=== PATIENT | female | born 1990 | race Caucasian/White ===

== ENCOUNTER 2016-11-27 15:42 | Emergency (ER) | payer OTHER ==
[~2016-11-27] VITALS: Ht 160 cm; Wt 60.0 kg
[~2016-11-27 15:42] MED LIST: EPIP0.3I IM; FAMO1TAB37 PO; PRED20 PO; ULTR50TA5 PO
[2016-11-27 15:46] VITALS: BP 122/78; PULSE 82; RESP 14; TEMP 98.3; O2SAT 100
== END 2016-11-27 16:10 | disposition left against medical advice (07) ==
LOC: NED 15:42
DX: R11.2 Nausea with vomiting, unspecified (principal)
CPT/HCPCS: 99281

== ENCOUNTER 2017-01-05 18:16 | Inpatient (IN) | payer OTHER ==
[~2017-01-05] VITALS: Ht 165.1 cm; Wt 60.3 kg
[2017-01-05] VITALS (18 sets, daily range): BP systolic 95–176; BP diastolic 51–81; PULSE 81–114; RESP 14–28; TEMP 99.2; O2SAT 95–100
[2017-01-05] MEDS ORDERED: ePHEDrine/NS 25 MG/5 ML SYR ONE (18:26)
--- NOTE | 2017-01-05 18:27 | PD ---
HPI Chief Complaint: allergic reaction Time Seen by Provider: 18:27 Travel History International Travel<30 days: No Contact w/Intl Traveler<30days: No Traveled to known affect area: No History of Present Illness HPI 26-year-old female with history of multiple allergies that no significant medical history presents to emergency department for evaluation of an allergic reaction. Patient took Vitussin in for a cough that she has been having for the last 2 days. She shortly began having chest tightness shortness of breath with oral sensation of swelling and sensation of her throat closing up. She could not find her EpiPen. Patient is with garbled speech, she is panicking, she has stridor on auscultation, she is tachypneic. No other history is able to be obtained at this time. PFSH Past Medical History Hx Anticoagulant Therapy: No Asthma: No Blood Disorders: No Anxiety: Yes Depression: No Heart Rhythm Problems: No Cancer: No (pre-cancer on right breast) Cardiovascular Problems: No High Cholesterol: No Chemotherapy: No Chest Pain: Yes Congestive Heart Failure: No COPD: No Cerebrovascular Accident: No Diabetes: No Diminished Hearing: No Endocrine: No Gastrointestinal Disorders: Yes (gallbladder removal 01/2016) Genitourinary: Yes (ATONIC BLADDER, UTI) Hypertension: No Immune Disorder: No Implanted Vascular Access Dvce: Yes Musculoskeletal: Yes (NERVE DAMAGE LOWER SPINE) Neurologic: Yes Psychiatric: Yes (POSSIBLE PTSD.) Reproductive: No Respiratory: No Migraines: Yes Radiation Therapy: No Sleep Apnea: No Thyroid Disease: No : 1 Miscarriage: 1 Tubal Ligation: Yes (3) Past Surgical History Body Medical Devices: "SCREWS (TITANIUM) ON LOWER BACK." Cholecystectomy: Yes (January 2016) Genitourinary Surgery: Yes (SUPRAPUBIC CATH 2011, SINCE REMOVED) Neurologic Surgery: Yes (NERVE STIMULATOR (REMOVED NOW)) Other Surgery: Yes (CYST REMOVED RESULTED IN NERVE DAMAGE BLADDER, CYST REMOVED FROM BREAST) Social History Alcohol Use: Yes (OCC) Tobacco Use: No Substance Use: No Allergies-Medications (Allergen,Severity, Reaction): Coded Allergies: Ativan (Verified Allergy, Severe, CODE PER PT, 01/05/17) Chlorhexidine (Verified Allergy, Severe, Anaphylaxis, 01/05/17) Patient was given Chlorhexidine bath c/o itching then went into respiratory distress code called Cipro (Verified Allergy, Severe, Anaphylaxis, 01/05/17) Morphine (Verified Allergy, Severe, Anaphylaxis, 01/05/17) [place] (Verified Allergy, Severe, Anaphylaxis, 01/05/17) Reglan (Unverified Allergy, Severe, UNCONTROLLED SHAKING, 01/05/17) IV FORM Rocephin (Verified Allergy, Severe, Anaphylaxis, 01/05/17) Septra (Verified Allergy, Severe, Rash, 01/05/17) Toradol (Verified Allergy, Severe, 01/05/17) Doxycycline (Verified Allergy, Unknown, Nausea/Vomiting, 01/05/17) Uncoded Allergies: v-tussin (Allergy, Severe, Anaphylaxis, 01/05/17) Reported Meds & Prescriptions Reported Meds & Active Scripts Active Epipen 2-Abel Inj (Epinephrine) 0.3 Mg/0.3 Ml Pfpen 0.3 Mg IM ONCE PRN Review of Systems Except as stated in HPI: all other systems reviewed are Neg Physical Exam Narrative GENERAL: Female patient, brought straight back, in acute respiratory distress SKIN: Warm and dry. HEAD: Atraumatic. Normocephalic. EYES: Pupils equal and round. No scleral icterus. No injection or drainage. ENT: No nasal bleeding or discharge. Mucous membranes pink and moist. NECK: Trachea midline. No JVD. CARDIOVASCULAR: Tachycardic rate and rhythm. No murmur appreciated. RESPIRATORY: Tachypneic. Stridor on auscultation. Faint wheezes, diminished sounds Breath sounds equal bilaterally. GASTROINTESTINAL: Abdomen soft, non-tender, nondistended. Hepatic and splenic margins not palpable. MUSCULOSKELETAL: No obvious deformities. No clubbing. No cyanosis. No edema. NEUROLOGICAL: Awake and alert. No obvious cranial nerve deficits. Motor grossly within normal limits. Normal speech. Data Data Last Documented VS Vital Signs Date Time Temp Pulse Resp B/P Pulse Ox O2 Delivery O2 Flow Rate FiO2 01/05/17 18:30 100 Orders Ecg Monitoring (01/05/17 18:24) Iv Access Insert/Monitor (01/05/17 18:24) Oximetry (01/05/17 18:24) Diphenhydramine Inj (Benadryl Inj) (01/05/17 18:30) Famotidine Inj (Pepcid Inj) (01/05/17 18:30) Albuterol Neb (Albuterol Neb) (01/05/17 18:30) Sodium Chloride 0.9% Flush (Ns Flush) (01/05/17 18:30) Epinephrine (1:1000) Inj (Adrenalin (1:1 (01/05/17 18:30) Ephedrine/Ns 25 Mg/5 Ml Syr (Ephedrine/N (01/05/17 18:26) Etomidate Inj (Amidate Inj) (01/05/17 18:29) Succinylcholine Inj (Quelicin Inj) (01/05/17 18:29) Etomidate Inj (Amidate Inj) (01/05/17 18:32) Succinylcholine Inj (Quelicin Inj) (01/05/17 18:32) Propofol 1000 Mg/100 Ml Inj (Diprivan 10 (01/05/17 18:38) Methylprednisolone So Succ Inj (Solumedr (01/05/17 18:45) Chest, Single Ap (01/05/17 ) Complete Blood Count With Diff (01/05/17 18:44) Basic Metabolic Panel (Bmp) (01/05/17 18:44) Urinalysis - C+S If Indicated (01/05/17 18:44) Urinary Catheter Management TRAY.Q8H (01/05/17 18:44) Etomidate Inj (Amidate Inj) (01/05/17 18:45) Succinylcholine Inj (Quelicin Inj) (01/05/17 18:45) Propofol 200 Mg/20 Ml Inj (Diprivan 200 (01/05/17 18:45) Propofol 1000 Mg/100 Ml Inj (Diprivan 10 (01/05/17 18:45) ^ Infusion (01/05/17 18:43) RASS (01/05/17 18:43) Neurological Rass Scale TRAY.Q2H (01/05/17 18:43) Midazolam Inj (Versed Inj) (01/05/17 19:00) Neurological Rass Scale Q30MX2,Q2HX4,Q4H (01/05/17 18:48) Fentanyl Drip (Fentanyl Drip) (01/05/17 19:00) Midazolam Inj (Versed Inj) (01/05/17 18:49) Fentanyl Drip (Fentanyl Drip) (01/05/17 18:49) MDM Medical Decision Making Medical Screen Exam Complete: Yes Emergency Medical Condition: Yes Medical Record Reviewed: Yes Differential Diagnosis Anaphylaxis versus allergic reaction versus anxiety Narrative Course 26-year-old female presents to emergency department as a straight back for anaphylaxis. Patient appears in acute distress. Epinephrine, Solu-Medrol, as ordered and I immediately discussed the patient with my attending physician Dr. Mathis who went and assess the patient immediately. He assumed care at this time. Condition: Stable Yoana Kumar Jan 05, 2017 18:27
[2017-01-05] MEDS ORDERED: SUCCINYLCHOLINE CHLORIDE 200 MG/10 ML VIAL ONE ×2 (18:29→18:32)
[2017-01-05] MEDS ORDERED: ETOMIDATE 20 MG/10 ML VIAL ONE ×2 (18:29→18:32)
[2017-01-05] MEDS ORDERED: diphenhydrAMINE HCL 50 MG/ML VIAL IVP ONE (18:30)
[2017-01-05] MEDS ORDERED: FAMOTIDINE 20 MG/2 ML VIAL IV PUSH ONE (18:30)
[2017-01-05] MEDS ORDERED: SODIUM CHLORIDE 0.9% FLUSH 5 ML FLUSH IVF PRN ×2 (18:30→21:30)
[2017-01-05] MEDS ORDERED: EPINEPHrine HCL (1:1000) 1 MG/ML VIAL IM ONE (18:30)
[2017-01-05] MEDS ORDERED: PROPOFOL 1000 MG/100 ML INJ 100 ML ONE (18:38)
[2017-01-05] MEDS ORDERED: methylPREDNISolone SOD SUCC 125 MG/2 ML VIAL IV PUSH ONE (18:45)
[2017-01-05] MEDS ORDERED: PROPOFOL 200 MG/20 ML AMP IV ONE (18:45)
[2017-01-05] MEDS ORDERED: ETOMIDATE 20 MG/10 ML VIAL IV PUSH ONE (18:45)
[2017-01-05] MEDS ORDERED: SUCCINYLCHOLINE CHLORIDE 200 MG/10 ML VIAL IV PUSH ONE (18:45)
[2017-01-05] MEDS ORDERED: fentaNYL DRIP 250 ML ONE (18:49)
[2017-01-05] MEDS ORDERED: MIDAZOLAM HCL 5 MG/ML VIAL (1 ML) ONE ×2 (18:49→20:02)
[2017-01-05] MEDS ORDERED: MIDAZOLAM HCL 5 MG/5 ML VIAL IV PUSH ONE (19:00)
--- NOTE | 2017-01-05 19:05 | HHI.HP ---
[facility] Service Critical Care Medicine [facility] Ad[facility] Diagnosis Diagnosis: (1) Anaphylaxis Diagnosis: Principal (2) Respiratory failure Diagnosis: Principal (3) Stridor Diagnosis: Principal (4) Nausea Diagnosis: Principal (5) Seizure cerebral Diagnosis: Principal (6) Pulmonary hypertension Diagnosis: Principal Chief Complaint: Anaphylactic reaction Travel History International Travel<30 Days: No Contact w/Intl Traveler <30 Da: No Traveled to Known Affected Are: No History of Present Illness 26-year-old Ethiopian female. Date of admission 01/05/2017. Past medical history includes known anaphylaxis with multiple drug allergies, PTSD, chronic abdominal pain, neurogenic bladder, procedure 2014 currently off all medications and pulmonary hypertension. She presents to [facility] via [facility] after consuming Hycotuss/V Tesson and experiencing her throat closing off. She was without her EpiPen symmetry and episode in 2015 and her symptoms got progressively worse. She states she is short of breath., Muffled voice. Upon arrival to ED, patient had bilateral breath sounds, tachycardic with no rash. Initially received Patient did have bilateral lung sounds on examination , was tachycardic, there is no obvious rash except for mild erythema over the chest. EpiPen 0.3 mg IM was administered. The patient was also administered 100.5 mg IV Solu-Medrol, 50 mg IV Benadryl and 20 mg Pepcid intravenously. However, the patient became in more distress, head difficulty maintaining airway , therefore, the patient was intubated using rapid sequence intubation. According to ED physician report, the hypopharynx to the level of the cords was edematous and erythematous. The patient has significant swelling just anterior and circumferential around the cords as well as in the posterior oropharynx. Initially, a 7.5 ET tube was attempted however did not pass. A 6.5 ET tube is currently in place. Patient had bilateral breath sounds. The patient was placed on a propofol drip and administered Versed and fentanyl. Review of Systems ROS Limitations: Intubated Past Family Social History Allergies: Coded Allergies: Ativan (Verified Allergy, Severe, CODE PER PT, 01/05/17) Chlorhexidine (Verified Allergy, Severe, Anaphylaxis, 01/05/17) Patient was given Chlorhexidine bath c/o itching then went into respiratory distress code called Cipro (Verified Allergy, Severe, Anaphylaxis, 01/05/17) Morphine (Verified Allergy, Severe, Anaphylaxis, 01/05/17) [place] (Verified Allergy, Severe, Anaphylaxis, 01/05/17) Reglan (Unverified Allergy, Severe, UNCONTROLLED SHAKING, 01/05/17) IV FORM Rocephin (Verified Allergy, Severe, Anaphylaxis, 01/05/17) Septra (Verified Allergy, Severe, Rash, 01/05/17) Toradol (Verified Allergy, Severe, 01/05/17) Doxycycline (Verified Allergy, Unknown, Nausea/Vomiting, 01/05/17) Uncoded Allergies: v-tussin (Allergy, Severe, Anaphylaxis, 01/05/17) Past Medical History PTSD Anaphylaxis Neurogenic bladder Prior history of seizures currently off all medication Hypertension Past Surgical History History spinal stimulator since removed History of suprapubic catheter since removed Right breast lumpectomy History spinal hardware status post stenting and titanium screws Reported Medications EpiPen when necessary Active Ordered Medications In EMR Family History Father is . Mother noncontributory. Social History No tobacco alcohol or IV drug use Physical Exam Vital Signs Vital Signs Date Time Temp Pulse Resp B/P Pulse Ox O2 Delivery O2 Flow Rate FiO2 01/05/17 18:30 100 Physical Exam GENERAL: 76-year-old female, currently orotracheally intubated with 6.5 ET tube SKIN: Warm and dry. No obvious rash HEAD: Atraumatic. Normocephalic. EYES: Pupils equal and round about 1 mm bilaterally and reactive. No scleral icterus. No injection or drainage. ENT: No nasal bleeding or discharge. Mucous membranes pink and moist. NECK: Trachea midline. No JVD. CARDIOVASCULAR: The cardiac, RRR. S1, S2 without murmur RESPIRATORY: No accessory muscle use. Clear to auscultation. Breath sounds equal bilaterally. GASTROINTESTINAL: Abdomen soft, non-tender, nondistended. Hepatic and splenic margins not palpable. MUSCULOSKELETAL: Extremities without difficulty and peripheral edema. No obvious deformities. NEUROLOGICAL: Arousable on the ventilator. Follows commands. Moves all extremities spontaneously. She appeared agitated. Laboratory Laboratory Tests Test 01/05/17 01/05/17 18:59 19:29 White Blood Count 10.4 TH/MM3 Red Blood Count 4.26 MIL/MM3 Hemoglobin 11.6 GM/DL Hematocrit 34.5 % Mean Corpuscular Volume 80.8 FL Mean Corpuscular Hemoglobin 27.2 PG Mean Corpuscular Hemoglobin 33.6 % Concent Red Cell Distribution Width 15.1 % Platelet Count 249 TH/MM3 Mean Platelet Volume 9.4 FL Neutrophils (%) (Auto) 41.4 % Lymphocytes (%) (Auto) 46.3 % Monocytes (%) (Auto) 8.3 % Eosinophils (%) (Auto) 3.2 % Basophils (%) (Auto) 0.8 % Neutrophils # (Auto) 4.3 TH/MM3 Lymphocytes # (Auto) 4.8 TH/MM3 Monocytes # (Auto) 0.9 TH/MM3 Eosinophils # (Auto) 0.3 TH/MM3 Basophils # (Auto) 0.1 TH/MM3 CBC Comment DIFF FINAL Differential Comment Urine Color YELLOW Urine Turbidity HAZY Urine pH 7.0 Urine Specific [place] 1.024 Urine Protein TRACE mg/dL Urine Glucose (UA) NEG mg/dL Urine Ketones NEG mg/dL Urine Occult Blood NEG Urine Nitrite NEG Urine Bilirubin NEG Urine Urobilinogen 2.0 MG/DL Urine Leukocyte Esterase NEG Urine RBC 2 /hpf Urine WBC 1 /hpf Urine Squamous Epithelial 1 /hpf Cells Urine Amorphous Sediment RARE Urine Hyaline Casts 1 /lpf Microscopic Urinalysis Comment CATH-CULT NOT IND Sodium Level 141 MEQ/L Potassium Level 2.8 MEQ/L Chloride Level 107 MEQ/L Carbon Dioxide Level 18.4 MEQ/L Anion Gap 16 MEQ/L Blood Urea Nitrogen 16 MG/DL Creatinine 0.90 MG/DL Estimat Glomerular Filtration 75 ML/MIN Rate Random Glucose 142 MG/DL Calcium Level 7.9 MG/DL Blood Gas Puncture Site RT RADIAL Blood Gas Patient Temperature 98.6 Blood Gas HCO3 18 mmol/L Blood Gas Base Excess -6.4 mmol/L Blood Gas Oxygen Saturation 97 % Arterial Blood pH 7.35 Arterial Blood Partial 34 mmHg Pressure CO2 Arterial Blood Partial 133 mmHG Pressure O2 Arterial Blood Oxygen Content 15.4 Vol % Arterial Blood 0.8 % Carboxyhemoglobin Arterial Blood Methemoglobin 0.8 % Blood Gas Hemoglobin 11.1 G/DL Oxygen Delivery Device VENTILATOR Blood Gas Ventilator Setting 450/16/+5 Blood Gas Inspired Oxygen 50 % Imaging Last Impressions Chest X-Ray 01/05/17 0000 Signed Impressions: Service Date/Time: Thursday, January 05, 2017 18:57 - CONCLUSION: 1. Interval intubation. 2. Mild infiltrate now noted in the inferior right upper lobe of concern for pneumonia. Darren Yee MD Assessment and Plan Assessment and Plan Neuro/Psych: Posttraumatic stress disorder Anxiety disorder History seizures Currently in propofol/fentanyl and Versed drips for sedation/analgesia while intubated Goal of RA SS of -3 No daily sedation vacation until anaphylaxis resolved. Acetaminophen for fever Currently not on any antiepileptic medication. Off Dilantin greater than 2 years CV: Sinus tachycardia History of pulmonary hypertension? Patient is currently hemodynamically stable not requiring antihypertensives and/ or vasopressors On normal saline at 84 cc an hour RespENT: Acute respiratory failure secondary to anaphylaxis/stridor ACV ventilation 16/450/5/50 Ventilator bundle Bronchodilator therapy every 6 hours and as needed No spontaneous breathing trials until evaluated by ENT Follow-up chest x-ray in a.m. Status post 125 mg Solu-Medrol , 20 mg Pepcid IV and and Benadryl 50 mg 1. ENT consultation for evaluation GI: Chronic abdominal pain Keep patient nothing by mouth Pepcid twice a day for GI prophylaxis Colace/as needed Senokot for bowel regimen : History of neurogenic bladder Ackerman will be Placed For accurate I's and O's in critically ill patient Endo: Hyperglycemia of critical illness Sliding-scale insulin with Accu-Cheks to maintain euglycemia/low regimenevery 6 hours. Renal: Accurate I's and O's. Monitor urine output. Heme: Monitor CBC daily ID: Monitor for infection. MSK: History of spinal surgery/neurostimulator since removed Physical therapy evaluate and treat FEN: Hypokalemia Given 60 mEq IV KCl. Recheck Check magnesium Access - Utilize peripheral IV. Central line if indicated Prophylaxis - GI - Pepcid - DVT - SCD/follow-up on test prior to anticoagulation decision Critical Care: The total critical care time was 75 minutes. Time to perform other separately billable procedures was not included in the critical care time. Code Status Full code Discussed Condition With ED physician Dr. Mathis. is currently to be contacted by phone. Care plan discussed all questions answered. Problem Qualifiers (1) Anaphylaxis: Qualified Code: T78.2XXA - Anaphylaxis, initial encounter (2) Respiratory failure: Qualified Code: J96.01 - Acute respiratory failure with hypoxia and hypercapnia Rip Braga MD Jan 05, 2017 19:04
[2017-01-05 19:14] LABS: AUTOMATED NEUTROPHIL # 4.3 TH/MM3 (1.8-7.7); BASOPHIL # 0.1 TH/MM3 (0-0.2); BASOPHIL % 0.8 % (0.0-2.0); EOSINOPHIL # 0.3 TH/MM3 (0-0.4); EOSINOPHIL % 3.2 % (0.0-4.0); HEMATOCRIT 34.5 % (35.0-46.0); HEMO FLAGS DIFF FINAL; LYMPH % 46.3 % (9.0-44.0); LYMPHOCYTE # 4.8 TH/MM3 (1.0-4.8); MEAN CELL VOLUME 80.8 FL (80.0-100.0); MEAN CORPUSCULAR HEMOGLOBIN 27.2 PG (27.0-34.0); MEAN CORPUSCULAR HGB CONC 33.6 % (32.0-36.0); MONO % 8.3 % (0.0-8.0); NEUT % 41.4 % (16.0-70.0); PLATELET COUNT 249 TH/MM3 (150-450); RED BLOOD COUNT 4.26 MIL/MM3 (4.00-5.30); RED CELL DISTRIBUTION WIDTH 15.1 % (11.6-17.2); WHITE BLOOD COUNT 10.4 TH/MM3 (4.0-11.0)
--- NOTE | 2017-01-05 19:14 | PD ---
Physical Exam Date Seen by Provider: Jan 05, 2017 Time Seen by Provider: 19:06 Narrative The patient is a 26-year-old female who presents emergency department for shortness of breath and allergic reaction. The patient was initially evaluated by the mid-level provider. Patient has a history of significant anaphylaxis, however, was unable to find her EpiPen earlier today when she developed an allergic reaction after ingesting cough medicine. Data Data Last Documented VS Vital Signs Date Time Temp Pulse Resp B/P Pulse Ox O2 Delivery O2 Flow Rate FiO2 01/05/17 18:30 100 Orders Ecg Monitoring (01/05/17 18:24) Iv Access Insert/Monitor (01/05/17 18:24) Oximetry (01/05/17 18:24) Diphenhydramine Inj (Benadryl Inj) (01/05/17 18:30) Famotidine Inj (Pepcid Inj) (01/05/17 18:30) Albuterol Neb (Albuterol Neb) (01/05/17 18:30) Sodium Chloride 0.9% Flush (Ns Flush) (01/05/17 18:30) Epinephrine (1:1000) Inj (Adrenalin (1:1 (01/05/17 18:30) Ephedrine/Ns 25 Mg/5 Ml Syr (Ephedrine/N (01/05/17 18:26) Etomidate Inj (Amidate Inj) (01/05/17 18:29) Succinylcholine Inj (Quelicin Inj) (01/05/17 18:29) Etomidate Inj (Amidate Inj) (01/05/17 18:32) Succinylcholine Inj (Quelicin Inj) (01/05/17 18:32) Propofol 1000 Mg/100 Ml Inj (Diprivan 10 (01/05/17 18:38) Methylprednisolone So Succ Inj (Solumedr (01/05/17 18:45) Chest, Single Ap (01/05/17 ) Complete Blood Count With Diff (01/05/17 18:44) Basic Metabolic Panel (Bmp) (01/05/17 18:44) Urinalysis - C+S If Indicated (01/05/17 18:44) Urinary Catheter Management TRAY.Q8H (01/05/17 18:44) Etomidate Inj (Amidate Inj) (01/05/17 18:45) Succinylcholine Inj (Quelicin Inj) (01/05/17 18:45) Propofol 200 Mg/20 Ml Inj (Diprivan 200 (01/05/17 18:45) Propofol 1000 Mg/100 Ml Inj (Diprivan 10 (01/05/17 18:45) ^ Infusion (01/05/17 18:43) RASS (01/05/17 18:43) Neurological Rass Scale TRAY.Q2H (01/05/17 18:43) Midazolam Inj (Versed Inj) (01/05/17 19:00) Neurological Rass Scale Q30MX2,Q2HX4,Q4H (01/05/17 18:48) Fentanyl Drip (Fentanyl Drip) (01/05/17 19:00) Midazolam Inj (Versed Inj) (01/05/17 18:49) Fentanyl Drip (Fentanyl Drip) (01/05/17 18:49) Admit Order (Ed Use Only) (01/05/17 19:04) [facility] Medical Record Reviewed: Yes Supervised Visit with HECTOR: Yes Interpretation(s) Checks x-ray reveals atelectasis. Endotracheal tube in place. Differential Diagnosis Differential diagnosis includes anaphylaxis, airway obstruction, stridor, allergic reaction, medication side effect, angioedema. Narrative Course I, Dr. Mathis, have reviewed the advance practice practitioner's documentation and am in agreement, met with the patient face to face, made the diagnosis, and the medical decision making was done by me. *My assessment and Findings: The patient is a 26-year-old female was initially evaluate by the mid-level provider. Please refer to the initial history, physical, Already evaluation, and treatment modality plan. The patient presented with shortness of breath after ingesting Hycotuss cough medication. The patient was unable to find her EpiPen at home and developed stridor shortness of breath with muffled voice. Upon arrival the patient is tachycardic, anxious, has significant stridor with difficulty speaking. Patient did have bilateral lung sounds on examination, was tachycardic, there is no obvious rash except for mild erythema over the chest. The patient was in distress, EpiPen 0.3 mg IM was administered. The patient was also administered site Medrol, Benadryl, Pepcid intravenously. However, the patient became in more distress, head difficulty maintaining airway, therefore, the patient was intubated using rapid sequence intubation. The patient's hypopharynx to the level of the cords was edematous and erythematous. The patient has significant swelling just anterior and circumferential around the cords as well as in the posterior oropharynx. As the patient had stridor with possible impending airway, I attempted a place a 7.5, however, the 7.5 would not pass through the edematous area, therefore, I placed a 6.0 through the edematous area. Patient had bilateral breath sounds. The patient was placed on a propofol drip and administered Versed and fentanyl. The patient had a postintubation chest x-ray obtained. The patient will be admitted to the intensive care unit. Critical Care Narrative Aggregate critical care time was 35 minutes. Time to perform other separately billable procedures was not included in the critical care time. My time did not include minutes spent treating any other patients simultaneously or on activities that did not directly contribute to the patient's treatment. The services I provided to this patient were to treat and/or prevent clinically significant deterioration that could result in: Anoxia, hypoxia, airway obstruction, arrhythmia, . I provided critical care services requiring my management, as noted below: Chart data review, documentation time, medication orders and management, vital sign assessments/reviewing monitor data, ordering and reviewing lab tests, ordering and interpreting/reviewing x-rays and diagnostic studies, care of the patient and discussion of the patient with the admitting physicians. Procedures Procedure Narrative INTUBATION: The patient was put in optimal position for the procedure. Rapid sequence intubation was initiated by me using 20 milligrams of etomidate IV and 100 milligrams of succinylcholine IV. The patient was intubated with a 6-0 cuffed endotracheal tube secondary to significant edema with a glide scope. Tube placement was confirmed by visualization of the tube and balloon passing through the cords, capnometry and subsequent chest x-ray. Breath sounds were equal and well aerated bilaterally postintubation. No breath sounds over stomach. Patient tolerated procedure well. Physician Communication Physician Communication I discussed the patient with Dr. Braga who agrees with admission. Diagnosis Primary Impression: Anaphylaxis Qualified Code: T78.2XXA - Anaphylaxis, initial encounter Additional Impression: Stridor Admitting Information Admitting Physician Requests: Admit Condition: Serious Mathis,[place] Z. MD Jan 05, 2017 19:14
[2017-01-05] MEDS: RESP: ALBUTEROL 2.5 MG/3 ML NEB (SCH) INH (19:16)
[2017-01-05] MEDS: fentaNYL DRIP 250 ML IV SCH (19:19)
[2017-01-05] MEDS: PROPOFOL 1000 MG/100 ML INJ 100 ML IV SCH ×2 (19:19→23:14)
[2017-01-05 19:26] LABS: BLOOD, URINE NEG (NEG); GLUCOSE,URINE NEG (NEG); HYALINE CAST, URINE 1 /lpf (RARE); KETONE, URINE NEG (NEG); NITRITE,URINE NEG (NEG); SQUAMOUS EPITHELIAL CELL URINE 1 /hpf (0-5); URINE COLOR YELLOW (YELLW/STRAW)
[2017-01-05 19:31] LABS: COMMENT (UR) CATH-CULT NOT IND; CULTURE IF INDICATED CATH CULTURE NOT IND
--- NOTE | 2017-01-05 19:32 | RADRPT ---
EXAM DATE/TIME: 01/05/2017 18:57 [facility] COMPARISON: CHEST SINGLE AP, October 02, 2016, 19:49. INDICATIONS : Intubation MEDICAL HISTORY : Unobtainable SURGICAL HISTORY : Unobtainable ENCOUNTER: Initial ACUITY: 1 day PAIN SCORE: Non-responsive. LOCATION: Bilateral chest FINDINGS: A single AP supine view of the chest was obtained and demonstrates interval intubation with the endot galen tube tip at the level of the thoracic inlet approximately 3 cm above the jg. There is new infiltrate along the inferior portion of the right upper lobe. The heart size is within normal limit s. The bony thorax is intact. The patient is status post cholecystectomy. There is no effusion. CONCLUSION: 1. Interval intubation. 2. Mild infiltrate now noted in the inferior right upper lobe of concern for pneumonia. Darren Yee MD on January 05, 2017 at 19:29 Board Certified Radiologist. This report was verified electronically.
[2017-01-05 19:37] LABS: ANION GAP 16 MEQ/L (5-15); BICARBONATE 18.4 MEQ/L (21.0-32.0); BLOOD UREA NITROGEN 16 MG/DL (7-18); CHLORIDE 107 MEQ/L (98-107); GLOMERULAR FILTRATION RATE 75 ML/MIN (>89); SODIUM (NA) 141 MEQ/L (136-145)
[2017-01-05 19:39] LABS: BLOOD GAS BASE EXCESS -6.4 mmol/L (-2-2); BLOOD GAS CARBOXYHEMOGLOBIN 0.8 % (0-4); BLOOD GAS HCO3 18 mmol/L (22-26); BLOOD GAS METHEMOGLOBIN 0.8 % (0-2); BLOOD GAS O2 HGB SATURATION 97 % (90-100); BLOOD GAS OXYGEN CONTENT 15.4 Vol % (12.0-20.0); BLOOD GAS PCO2 34 mmHg (38-42); BLOOD GAS PO2 133 mmHG (61-120); BLOOD GAS TOTAL HGB 11.1 G/DL (12.0-16.0); TEMP CORR TO 98.6
[2017-01-05 19:40] LABS: CRITICAL VALUE NO; DRAW SITE RT RADIAL; FIO2 50 %; NUMBER OF ARTERIAL PUNCTURES 1; OXYGEN DEVICE VENTILATOR; STAT YES; ULNAR PULSE PRESENT; VENT SETTINGS 450/16/+5
[2017-01-05 19:40] LABS: POTASSIUM 2.8 MEQ/L (3.5-5.1)
[2017-01-05] MEDS ORDERED: GLUCAGON 1 MG/ML VIAL OTHER PRN (19:45)
[2017-01-05] MEDS ORDERED: fentaNYL DRIP 250 ML IV SCH (19:45)
[2017-01-05] MEDS ORDERED: SODIUM PHOSPHATE INJ 30 MMOL in SODIUM CHLOR 0.9% 250 ML INJ 240 ML IV PRN (19:45)
[2017-01-05] MEDS ORDERED: SODIUM CHLORIDE 0.9% FLUSH 5 ML FLUSH IV FLUSH PRN (19:45)
[2017-01-05] MEDS ORDERED: POTASSIUM PHOSPHATE MONOBASIC 500 MG TAB PO/TUBE PRN (19:45)
[2017-01-05] MEDS ORDERED: POTASSIUM PHOSPHATE INJ 30 MMOL in SODIUM CHLOR 0.9% 250 ML INJ 250 ML IV PRN (19:45)
[2017-01-05] MEDS ORDERED: RESP: ALBUTEROL 2.5 MG/3 ML NEB (PRN) INH (19:45)
[2017-01-05] MEDS ORDERED: MAGNESIUM SULFATE INJ 4 GM in SODIUM CHLORIDE 0.9% INJ 92 ML IV PRN (19:45)
[2017-01-05] MEDS ORDERED: SENNOSIDES 8.6 MG TAB PO PRN (19:45)
[2017-01-05] MEDS ORDERED: MAGNESIUM OXIDE 400 MG TAB PO PRN (19:45)
[2017-01-05] MEDS ORDERED: MISCELLANEOUS NURSING INFORMATION XX SCH (19:45)
[2017-01-05] MEDS ORDERED: POTASSIUM PHOSPHATE MONOBASIC 500 MG TAB PO PRN (19:45)
[2017-01-05] MEDS ORDERED: MAGNESIUM SULFATE INJ 2 GM in SODIUM CHLORIDE 0.9% INJ 96 ML IV PRN (19:45)
[2017-01-05] MEDS ORDERED: DEXTROSE 50% IN WATER 50 ML VIAL(D50) IV PUSH PRN (19:45)
[2017-01-05] MEDS ORDERED: POTASSIUM CHLOR 40 MEQ PREMIX 100 ML IV PRN ×2 (19:45)
[2017-01-05] MEDS ORDERED: POTASSIUM CHLOR 20 MEQ PREMIX 100 ML IV PRN ×2 (19:45)
[2017-01-05] MEDS ORDERED: ONDANSETRON HCL 4 MG/2 ML VIAL IV PRN (19:45)
[2017-01-05] MEDS ORDERED: MIDAZOLAM HCL 2 MG/2 ML VIAL IV PUSH PRN (20:00)
[2017-01-05] MEDS ORDERED: PROPOFOL 1000 MG/100 ML INJ 100 ML IV SCH (20:00)
[2017-01-05] MEDS: RESP: ALBUTEROL 2.5 MG/IPRATROPIUM 0.5 MG NEB (SCH) INH ×2 (20:00→23:25)
[2017-01-05] MEDS ORDERED: MIDAZOLAM 100 MG/ML INJ 100 ML IV SCH (20:00)
[2017-01-05] MEDS ORDERED: POTASSIUM CHLOR 40 MEQ PREMIX 100 ML IV SCH (20:00)
[2017-01-05] MEDS ORDERED: CHLORHEXIDINE 0.12% (ORAL KIT) 15 ML CUP MT SCH (20:00)
[2017-01-05 20:11] LABS: BETA HCG QUANT LESS THAN 1 MIU/ML (0-5)
[2017-01-05 20:20] LABS: MAGNESIUM 2.2 MG/DL (1.5-2.5)
[2017-01-05] MEDS: diphenhydrAMINE HCL 50 MG/ML VIAL IV PUSH SCH (20:25)
[2017-01-05] MEDS: FAMOTIDINE 20 MG/2 ML VIAL IV PUSH SCH (20:25)
[2017-01-05] MEDS: DOCUSATE SODIUM 100 MG CAP PO SCH (21:00)
--- NOTE | 2017-01-05 21:18 | PD.PROCEDR ---
Central Line Procedure REASON FOR PROCEDURE Central venous access PROCEDURE PERFORMED Central line placement: Right IJ CVL CONSENT Informed consent for procedure was obtained from . The risks and benefits of the procedure were discussed to include but limited to bleeding, clot formation, infection, and even . ANESTHESIA Local injection of 1% Lidocaine DESCRIPTION OF THE PROCEDURE The patient was placed in supine, mild Trendelenburg position. The area was exposed and cleansed with ChloraPrep, times two. Large sterile drape was used to cover the patient, with the site exposed, under sterile conditions including cap, face mask, sterile gown, and sterile gloves. On single attempt, the introducer needle was inserted with negative pressure in syringe and venous flash was obtained. The guide wire was then advanced without any restriction and the needle was removed. The dilator was used without any complications. Using Seldinger technique the triple lumen catheter was advanced over the guide wire to a depth of 20 centimeters. The guide wire was removed. All ports were aspirated with dark venous blood return and flushed easily with sterile saline. All ports were capped. Antibiotic disc was placed around central line at puncture site. The central line was secured to the skin with two interrupted 2.0 silk sutures. The area was bandaged with sterile see-through central line bandage. RADIOLOGICAL DATA Ultrasound guidance was used to locate right internal jugular vein. Doppler/ color flow was used to confirm venous flow. COMPLICATIONS: No apparent complications ESTIMATED BLOOD LOSS: Less than 1 cc. Rip Braga MD Jan 05, 2017 21:18
--- NOTE | 2017-01-05 22:11 | RADRPT ---
EXAM DATE/TIME: 01/05/2017 21:48 [facility] COMPARISON: CHEST SINGLE AP, January 05, 2017, 18:57. INDICATIONS : Central Line Placement. MEDICAL HISTORY : Cholelithiasis. Migraines. Atonic bladder. UTI. Nerve damage, lower spine. Blood transfusion. SURGICAL HISTORY : Cholecystectomy. Nerve stimulator, placement and removal. Suprepubic catheter, placement and removal. Cyst removed from breast. ENCOUNTER: Initial ACUITY: 1 day PAIN SCORE: Non-responsive. LOCATION: Bilateral chest FINDINGS: A single view of the chest demonstrates minimal right upper lobe consolidation. Right jugular central line tip in the cavoatrial junction. No pneumothorax. Endotracheal tube unchanged. The cardiomedias tinal contours are unremarkable. Osseous structures are intact. CONCLUSION: 1. Minimal right upper lobe consolidation slightly more prominent. 2. Adequate placement of right jugular central line. Bryaan Her MD on January 05, 2017 at 22:09 Board Certified Radiologist. This report was verified electronically.
[2017-01-05] MEDS: SODIUM CHLOR 0.9% 1000 ML INJ 1,000 ML IV SCH (22:58)
[2017-01-05] MEDS: HEPARIN SODIUM - SQ 10,000 UNITS/ML VIAL SQ SCH (22:59)
[2017-01-05] MEDS: methylPREDNISolone SOD SUCC 40 MG/1 ML VIAL IV PUSH SCH (22:59)
[2017-01-05] MEDS: POTASSIUM CHLOR 10 MEQ PREMIX 100 ML IV SCH (23:00)
[2017-01-05] MEDS ORDERED: EPINEPHrine (1:1000) INJ 2 MG in DEXTROSE 5% IN WATER INJ 248 ML IV SCH ×2 (23:00)
[2017-01-05] MEDS: SODIUM CHLORIDE 0.9% FLUSH 5 ML FLUSH IV FLUSH SCH (23:00)
[2017-01-05] MEDS: INSULIN NovoLIN REGULAR SUPPLEMENTAL SCALE SQ SCH (23:59)
[2017-01-06] VITALS (18 sets, daily range): BP systolic 101–111; BP diastolic 50–55; PULSE 79–127; RESP 14; TEMP 98.6–101.8; O2SAT 98–100
[2017-01-06] MEDS: POTASSIUM CHLOR 10 MEQ PREMIX 100 ML IV SCH ×4 (00:15→04:17)
[2017-01-06] MEDS: diphenhydrAMINE HCL 50 MG/ML VIAL IV PUSH SCH ×4 (01:23→20:48)
[2017-01-06] MEDS: RESP: ALBUTEROL 2.5 MG/IPRATROPIUM 0.5 MG NEB (SCH) INH ×6 (03:17→23:37)
[2017-01-06] MEDS: MIDAZOLAM 100 MG/ML INJ 100 ML IV SCH ×2 (04:16→12:53)
[2017-01-06] MEDS: HEPARIN SODIUM - SQ 10,000 UNITS/ML VIAL SQ SCH ×3 (04:58→20:48)
[2017-01-06] MEDS: PROPOFOL 1000 MG/100 ML INJ 100 ML IV SCH ×3 (04:58→16:16)
[2017-01-06] MEDS: methylPREDNISolone SOD SUCC 40 MG/1 ML VIAL IV PUSH SCH ×3 (04:58→18:23)
[2017-01-06 05:08] LABS: AUTOMATED NEUTROPHIL # 11.9 TH/MM3 (1.8-7.7); HEMO FLAGS DIFF FINAL; LYMPH % 3.3 % (9.0-44.0); LYMPHOCYTE # 0.4 TH/MM3 (1.0-4.8); MEAN CELL VOLUME 82.9 FL (80.0-100.0); MEAN CORPUSCULAR HEMOGLOBIN 26.2 PG (27.0-34.0); MEAN CORPUSCULAR HGB CONC 31.6 % (32.0-36.0); MONO % 0.8 % (0.0-8.0); NEUT % 95.9 % (16.0-70.0); PLATELET COUNT 178 TH/MM3 (150-450); RED BLOOD COUNT 3.98 MIL/MM3 (4.00-5.30); RED CELL DISTRIBUTION WIDTH 14.7 % (11.6-17.2); WHITE BLOOD COUNT 12.4 TH/MM3 (4.0-11.0)
--- NOTE | 2017-01-06 05:25 | RADRPT ---
EXAM DATE/TIME: 01/06/2017 03:23 [facility] COMPARISON: CHEST SINGLE AP, January 05, 2017, 21:48. INDICATIONS : Shortness of breath, possible pulmonary disease. MEDICAL HISTORY : Cholelithiasis. UTI SURGICAL HISTORY : Cholecystectomy. ENCOUNTER: Subsequent ACUITY: 2 days PAIN SCORE: Non-responsive. LOCATION: Bilateral chest FINDINGS: A single view of the chest demonstrates endotracheal tube in satisfactory position. Right central williams e in superior vena cava. Right perihilar airspace disease persists, slightly improved in the lateral aspect of the right upper lobe. Minimal basilar opacity. No significant effusion. CONCLUSION: 1. Endotracheal tube and right central line in satisfactory position. Right perihilar airspace diseas e persists. Luiz Parker MD on January 06, 2017 at 5:23 Board Certified Radiologist. This report was verified electronically.
[2017-01-06 05:30] LABS: APTT (PATIENT) 25.2 SEC (24.3-30.1); PROTHROMBIN TIME - PATIENT 10.9 SEC (9.8-11.6)
[2017-01-06] MEDS: fentaNYL DRIP 250 ML IV SCH ×2 (05:32→16:17)
[2017-01-06] MEDS: INSULIN NovoLIN REGULAR SUPPLEMENTAL SCALE SQ SCH ×3 (05:32→18:00)
[2017-01-06] MEDS: FAMOTIDINE 20 MG/2 ML VIAL IV PUSH SCH ×2 (07:34→20:47)
[2017-01-06] MEDS: SODIUM CHLORIDE 0.9% FLUSH 5 ML FLUSH IV FLUSH SCH ×2 (07:34→20:48)
[2017-01-06] MEDS: DOCUSATE SODIUM 100 MG CAP PO SCH ×2 (07:34→20:48)
[2017-01-06] MEDS: SODIUM CHLORIDE 0.9% FLUSH 5 ML FLUSH IVF SCH (07:34)
--- NOTE | 2017-01-06 08:11 | HHI.CCPN ---
Subjective Remarks/Hospital Course 26-year-old [place] female. Date of admission 01/05/2017. Past medical history includes known anaphylaxis with multiple drug allergies, PTSD, chronic abdominal pain, neurogenic bladder, procedure 2015 currently off all medications and pulmonary hypertension. She presents to [facility] via [facility] after consuming Hycotuss/V Tesson and experiencing her throat closing off. She was without her EpiPen symmetry and episode in 2016 and her symptoms got progressively worse. She states she is short of breath., Muffled voice. Upon arrival to ED, patient had bilateral breath sounds, tachycardic with no rash. Initially received Patient did have bilateral lung sounds on examination , was tachycardic, there is no obvious rash except for mild erythema over the chest. EpiPen 0.3 mg IM was administered. The patient was also administered 100.5 mg IV Solu-Medrol, 50 mg IV Benadryl and 20 mg Pepcid intravenously. However, the patient became in more distress, head difficulty maintaining airway , therefore, the patient was intubated using rapid sequence intubation. According to ED physician report, the hypopharynx to the level of the cords was edematous and erythematous. The patient has significant swelling just anterior and circumferential around the cords as well as in the posterior oropharynx. Initially, a 7.5 ET tube was attempted however did not pass. A 6.5 ET tube is currently in place. Patient had bilateral breath sounds. The patient was placed on a propofol drip and administered Versed and fentanyl. Subjective 01/06: Afebrile. Currently sedated on propofol fentanyl and Versed drips requiring epinephrine for baseline support. Will attempt NG tube later this afternoon and CT neck. Appears comfortable at rest -3-4. Objective Vital Signs Date Time Temp Pulse Resp B/P Pulse Ox O2 Delivery O2 Flow Rate FiO2 01/06/17 06:00 116 01/06/17 04:05 98 40 01/06/17 04:00 98.7 14 106/53 01/05/17 21:06 Ventilator Result Diagram: 01/06/17 0453 01/05/17 1859 Imaging Last Impressions Chest X-Ray 01/06/17 0000 Signed Impressions: Service Date/Time: Friday, January 06, 2017 03:23 - CONCLUSION: 1. Endotracheal tube and right central line in satisfactory position. Right perihilar airspace disease persists. Luiz Parker MD Objective Remarks GENERAL: 76-year-old female, currently orotracheally intubated with 6.5 ET tube SKIN: Warm and dry. No obvious rash HEAD: Atraumatic. Normocephalic. EYES: Pupils equal and round about 1 mm bilaterally and reactive. No scleral icterus. No injection or drainage. ENT: No nasal bleeding or discharge. Mucous membranes pink and moist. NECK: Trachea midline. No JVD. CARDIOVASCULAR: The cardiac, RRR. S1, S2 without murmur RESPIRATORY: No accessory muscle use. Clear to auscultation. Breath sounds equal bilaterally. GASTROINTESTINAL: Abdomen soft, non-tender, nondistended. Hepatic and splenic margins not palpable. MUSCULOSKELETAL: Extremities without difficulty and peripheral edema. No obvious deformities. NEUROLOGICAL:, Sedated on the ventilator RASS -3. Appears comfortable. Vascular Central Line Catheter: Yes Assessment to: Continue Date of Insertion: Jan 05, 2017 Line: Central Venous Catheter Side: Right Location: Internal, Jugular A/P Assessment and Plan Neuro/Psych: Posttraumatic stress disorder Anxiety disorder History seizures Currently in propofol/fentanyl and Versed drips for sedation/analgesia while intubated Goal of RASS of -3 No daily sedation vacation until anaphylaxis resolved. Acetaminophen for fever Currently not on any antiepileptic medication. Off Dilantin greater than 2 years CV: Sinus tachycardia History of pulmonary hypertension? Lactic acidosis Patient is currently on epinephrine drip at 4 mg/m likely secondary to sedation requirements. Does not appear septic On normal saline at 84 cc an hour Lactate 8.3 is and likely secondary anaphylaxis. We'll trend RespENT: Acute respiratory failure secondary to anaphylaxis/stridor ACV ventilation 16/450/5/40 Ventilator bundle Bronchodilator therapy every 6 hours and as needed No spontaneous breathing trials until evaluated by ENT Follow-up chest x-ray in a.m. Status post 125 mg Solu-Medrol , 20 mg Pepcid IV and and Benadryl 50 mg 1. ENT consultation for evaluation GI: Chronic abdominal pain Keep patient nothing by mouth Attempt to place NG to this afternoon after CT neck Pepcid twice a day for GI prophylaxis Colace/as needed Senokot for bowel regimen : History of neurogenic bladder Ackerman will be Placed For accurate I's and O's in critically ill patient Endo: Hyperglycemia of critical illness Sliding-scale insulin with Accu-Cheks to maintain euglycemia/low regimenevery 6 hours. Renal: Accurate I's and O's. Monitor urine output. Heme: Leukocytosis Monitor CBC daily ID: Monitor for infection. MSK: History of spinal surgery/neurostimulator since removed Physical therapy evaluate and treat FEN: Hypokalemia Electively protocol initiated. Replace as clinically indicated. A.m. laboratories are currently pending Access -Right IJ CVL day #2 placed 01/05 Prophylaxis - GI - Pepcid - DVT - SCD/heparin subcutaneous Critical Care: The total critical care time was 35 minutes. Time to perform other separately billable procedures was not included in the critical care time. Discussed with at bedside. Care plan discussed questions answered. Rip Braga MD Jan 06, 2017 08:11
[2017-01-06] MEDS ORDERED: PANTOPRAZOLE SODIUM 40 MG VIAL IV SCH (09:00)
[2017-01-06] MEDS: ARTIFICIAL TEARS OPTH SOLN 15 ML BTL EACH EYE SCH ×3 (09:00→18:00)
[2017-01-06 10:36] LABS: ALT (GPT) 33 U/L (10-53); ANION GAP 7 MEQ/L (5-15); AST (GOT) 26 U/L (15-37); BICARBONATE 19.8 MEQ/L (21.0-32.0); BLOOD UREA NITROGEN 7 MG/DL (7-18); CHLORIDE 113 MEQ/L (98-107); GLOMERULAR FILTRATION RATE 104 ML/MIN (>89); MAGNESIUM 2.3 MG/DL (1.5-2.5); POTASSIUM 5.2 MEQ/L (3.5-5.1); SODIUM (NA) 140 MEQ/L (136-145)
[2017-01-06 10:37] LABS: ALKALINE PHOSPHATASE 76 U/L (45-117); TOTAL BILIRUBIN ADULT 0.3 MG/DL (0.2-1.0)
--- NOTE | 2017-01-06 10:40 | RADRPT ---
EXAM DATE/TIME: 01/06/2017 10:15 [facility] COMPARISON: No previous studies available for comparison. INDICATIONS : Known anaphylaxis with impending airway. Intubated. RADIATION DOSE: 25.13 CTDIvol (mGy) MEDICAL HISTORY : None SURGICAL HISTORY : Tubal ligation. Cholecystectomy. ENCOUNTER: Initial ACUITY: 1 day PAIN SCORE: Non-responsive LOCATION: neck TECHNIQUE: Volumetric scanning of the neck was performed. Using automated exposure control and adjustment of th e mA and/or kV according to patient size, radiation dose was kept as low as reasonably achievable to obtain optimal diagnostic quality images. FINDINGS: NASOPHARYNX: The nasopharyngeal airway has a normal configuration. No mucosal thickening or mass is seen. OROPHARYNX: The intrinsic muscles of the tongue are symmetric. The tonsillar pillars are intact. The prevertebr al soft tissues are not thickened. LARYNX: There is some fluid/secretions surrounding endotracheal tube. The supraglottic, glottic, and infraglo ttic structures are intact. PARAPHARYNGEAL: The parapharyngeal space is intact. SALIVARY GLANDS: The parotid and submandibular glands are intact. LYMPH NODES: No enlarged or necrotic-appearing nodes. THYROID: Homogeneous enhancement without evidence of nodule. BONES: Unremarkable. Endotracheal tube with tip in mid trachea. Right jugular central line. CONCLUSION: 1. There is some fluid/secretions in the upper trachea in the region regional larynx surrounding endo tracheal tube otherwise unremarkable CT soft tissue neck. Brayan Her MD on January 06, 2017 at 10:34 Board Certified Radiologist. This report was verified electronically.
[2017-01-06] MEDS: SODIUM CHLOR 0.9% 1000 ML INJ 1,000 ML IV SCH ×2 (10:59→20:48)
[2017-01-06] MEDS ORDERED: SODIUM PHOSPHATE INJ 30 MMOL in SODIUM CHLOR 0.9% 250 ML INJ 240 ML IV ONE (11:15)
[2017-01-06] MEDS ORDERED: TERBUTALINE INJ 1 MG/ML AMP SQ PRN (21:30)
[2017-01-06] MEDS ORDERED: ACETAMINOPHEN 1000 MG/100 ML VIAL IV PRN (21:30)
[2017-01-06] MEDS ORDERED: PHENYLEPHRINE INJ 40 MG in DEXTROSE 5% IN WATE 500 ML INJ 496 ML IV SCH ×2 (22:30)
[2017-01-07] VITALS (16 sets, daily range): BP systolic 102–143; BP diastolic 51–72; PULSE 60–142; RESP 14–20; TEMP 97.1–98.8; O2SAT 96–100
[2017-01-07] MEDS: PROPOFOL 1000 MG/100 ML INJ 100 ML IV SCH ×3 (00:13→11:01)
[2017-01-07] MEDS: methylPREDNISolone SOD SUCC 40 MG/1 ML VIAL IV PUSH SCH ×4 (00:14→18:00)
[2017-01-07] MEDS: INSULIN NovoLIN REGULAR SUPPLEMENTAL SCALE SQ SCH ×4 (00:17→18:00)
[2017-01-07] MEDS: diphenhydrAMINE HCL 50 MG/ML VIAL IV PUSH SCH ×4 (02:17→19:45)
[2017-01-07] MEDS: fentaNYL DRIP 250 ML IV SCH (02:19)
[2017-01-07] MEDS: RESP: ALBUTEROL 2.5 MG/IPRATROPIUM 0.5 MG NEB (SCH) INH ×5 (03:39→19:39)
[2017-01-07 04:35] LABS: AUTOMATED NEUTROPHIL # 18.8 TH/MM3 (1.8-7.7); BASOPHIL % 0.1 % (0.0-2.0); HEMATOCRIT 32.3 % (35.0-46.0); HEMO FLAGS DIFF FINAL; LYMPH % 5.9 % (9.0-44.0); LYMPHOCYTE # 1.3 TH/MM3 (1.0-4.8); MEAN CORPUSCULAR HEMOGLOBIN 26.7 PG (27.0-34.0); MONO % 9.2 % (0.0-8.0); NEUT % 84.8 % (16.0-70.0); PLATELET COUNT 278 TH/MM3 (150-450); RED BLOOD COUNT 3.99 MIL/MM3 (4.00-5.30); RED CELL DISTRIBUTION WIDTH 15.1 % (11.6-17.2); WHITE BLOOD COUNT 22.2 TH/MM3 (4.0-11.0)
[2017-01-07 04:47] LABS: APTT (PATIENT) 25.8 SEC (24.3-30.1)
[2017-01-07 04:58] LABS: ALKALINE PHOSPHATASE 69 U/L (45-117); ALT (GPT) 37 U/L (10-53); ANION GAP 9 MEQ/L (5-15); AST (GOT) 32 U/L (15-37); BICARBONATE 23.3 MEQ/L (21.0-32.0); BLOOD UREA NITROGEN 9 MG/DL (7-18); CHLORIDE 110 MEQ/L (98-107); GLOMERULAR FILTRATION RATE 113 ML/MIN (>89); MAGNESIUM 2.5 MG/DL (1.5-2.5); SODIUM (NA) 142 MEQ/L (136-145); TOTAL BILIRUBIN ADULT 0.3 MG/DL (0.2-1.0)
[2017-01-07] MEDS: HEPARIN SODIUM - SQ 10,000 UNITS/ML VIAL SQ SCH ×3 (05:19→20:14)
[2017-01-07] MEDS: SODIUM CHLORIDE 0.9% FLUSH 5 ML FLUSH IV FLUSH SCH ×2 (07:48→20:13)
[2017-01-07] MEDS: SODIUM CHLORIDE 0.9% FLUSH 5 ML FLUSH IVF SCH (07:48)
[2017-01-07] MEDS: MIDAZOLAM 100 MG/ML INJ 100 ML IV SCH (07:49)
[2017-01-07] MEDS: FAMOTIDINE 20 MG/2 ML VIAL IV PUSH SCH ×2 (07:49→19:45)
[2017-01-07] MEDS: SODIUM CHLOR 0.9% 1000 ML INJ 1,000 ML IV SCH (07:51)
[2017-01-07] MEDS: DOCUSATE SODIUM 100 MG CAP PO SCH ×2 (07:54→20:14)
[2017-01-07] MEDS: ARTIFICIAL TEARS OPTH SOLN 15 ML BTL EACH EYE SCH ×3 (09:00→18:00)
--- NOTE | 2017-01-07 09:42 | HHI.CCPN ---
Subjective Remarks/Hospital Course 26-year-old [place] female. Date of admission 01/05/2017. Past medical history includes known anaphylaxis with multiple drug allergies, PTSD, chronic abdominal pain, neurogenic bladder, procedure 2014 currently off all medications and pulmonary hypertension. She presents to [facility] via [facility] after consuming Hycotuss/V Tesson and experiencing her throat closing off. She was without her EpiPen symmetry and episode in 2015 and her symptoms got progressively worse. She states she is short of breath., Muffled voice. Upon arrival to ED, patient had bilateral breath sounds, tachycardic with no rash. Initially received Patient did have bilateral lung sounds on examination , was tachycardic, there is no obvious rash except for mild erythema over the chest. EpiPen 0.3 mg IM was administered. The patient was also administered 100.5 mg IV Solu-Medrol, 50 mg IV Benadryl and 20 mg Pepcid intravenously. However, the patient became in more distress, head difficulty maintaining airway , therefore, the patient was intubated using rapid sequence intubation. According to ED physician report, the hypopharynx to the level of the cords was edematous and erythematous. The patient has significant swelling just anterior and circumferential around the cords as well as in the posterior oropharynx. Initially, a 7.5 ET tube was attempted however did not pass. A 6.5 ET tube is currently in place. Patient had bilateral breath sounds. The patient was placed on a propofol drip and administered Versed and fentanyl. Subjective 01/06: Afebrile. Currently sedated on propofol fentanyl and Versed drips requiring epinephrine for baseline support. Will attempt NG tube later this afternoon and CT neck. Appears comfortable at rest -3-4. 01/07 Patient remains sedated with Diprivan, Fentanyl and Versed. T: 101.8 last night. She was initially started on Neosyn overnight however it was weaned off. Objective Vital Signs Date Time Temp Pulse Resp B/P Pulse Ox O2 Delivery O2 Flow Rate FiO2 01/07/17 08:38 100 35 01/07/17 06:00 60 01/07/17 04:00 98.2 14 128/67 01/05/17 21:06 Ventilator 01/05/17 18:26 2 Intake and Output 01/06/17 01/06/17 01/07/17 08:00 16:00 00:00 Intake Total 1601 ml 1484 ml 1070 ml Output Total 700 ml 900 ml 600 ml Balance 901 ml 584 ml 470 ml Result Diagram: 01/07/17 0424 01/07/17 0424 Other Results Laboratory Tests Test 01/06/17 01/06/17 01/07/17 12:50 20:57 04:24 Lactic Acid Level 1.0 mmol/L 1.2 mmol/L 2.3 mmol/L White Blood Count 22.2 TH/MM3 Red Blood Count 3.99 MIL/MM3 Hemoglobin 10.7 GM/DL Hematocrit 32.3 % Mean Corpuscular Volume 81.0 FL Mean Corpuscular Hemoglobin 26.7 PG Mean Corpuscular Hemoglobin 33.0 % Concent Red Cell Distribution Width 15.1 % Platelet Count 278 TH/MM3 Mean Platelet Volume 8.8 FL Neutrophils (%) (Auto) 84.8 % Lymphocytes (%) (Auto) 5.9 % Monocytes (%) (Auto) 9.2 % Eosinophils (%) (Auto) 0.0 % Basophils (%) (Auto) 0.1 % Neutrophils # (Auto) 18.8 TH/MM3 Lymphocytes # (Auto) 1.3 TH/MM3 Monocytes # (Auto) 2.1 TH/MM3 Eosinophils # (Auto) 0.0 TH/MM3 Basophils # (Auto) 0.0 TH/MM3 CBC Comment DIFF FINAL Differential Comment Prothrombin Time 11.0 SEC Prothromb Time International 1.0 RATIO Ratio Activated Partial 25.8 SEC Thromboplast Time Fibrinogen 275 mg/dL Sodium Level 142 MEQ/L Potassium Level 4.0 MEQ/L Chloride Level 110 MEQ/L Carbon Dioxide Level 23.3 MEQ/L Anion Gap 9 MEQ/L Blood Urea Nitrogen 9 MG/DL Creatinine 0.63 MG/DL Estimat Glomerular Filtration 113 ML/MIN Rate Random Glucose 138 MG/DL Calcium Level 7.6 MG/DL Phosphorus Level 2.7 MG/DL Magnesium Level 2.5 MG/DL Total Bilirubin 0.3 MG/DL Aspartate Amino Transf 32 U/L (AST/SGOT) Alanine Aminotransferase 37 U/L (ALT/SGPT) Alkaline Phosphatase 69 U/L Ammonia 32 MCMOL/L Total Protein 6.6 GM/DL Albumin 3.2 GM/DL Imaging Last Impressions Neck CT 01/06/17 0000 Signed Impressions: Service Date/Time: Friday, January 06, 2017 10:15 - CONCLUSION: 1. There is some fluid/secretions in the upper trachea in the region regional larynx surrounding endotracheal tube otherwise unremarkable CT soft tissue neck. Brayan Her MD Chest X-Ray 01/06/17 0000 Signed Impressions: Service Date/Time: Friday, January 06, 2017 03:23 - CONCLUSION: 1. Endotracheal tube and right central line in satisfactory position. Right perihilar airspace disease persists. Luiz Parker MD Objective Remarks GENERAL: 76-year-old female, currently orotracheally intubated with 6.5 ET tube SKIN: Warm and dry. No obvious rash HEAD: Atraumatic. Normocephalic. EYES: Pupils equal and round about 1 mm bilaterally and reactive. No scleral icterus. No injection or drainage. ENT: No nasal bleeding or discharge. Mucous membranes pink and moist. NECK: Trachea midline. No JVD. CARDIOVASCULAR: The cardiac, RRR. S1, S2 without murmur RESPIRATORY: No accessory muscle use. Clear to auscultation. Breath sounds equal bilaterally. GASTROINTESTINAL: Abdomen soft, non-tender, nondistended. Hepatic and splenic margins not palpable. MUSCULOSKELETAL: Extremities without difficulty and peripheral edema. No obvious deformities. NEUROLOGICAL:, Sedated on the ventilator RASS -3. Appears comfortable. Date of Insertion: Jan 05, 2017 Line: Central Venous Catheter Side: Right Location: Internal, Jugular A/P Assessment and Plan Neuro/Psych: Posttraumatic stress disorder Anxiety disorder History seizures On propofol/fentanyl and Versed drips for sedation/analgesia while intubated Daily sedation vacation Acetaminophen for fever Currently not on any antiepileptic medication. Off Dilantin greater than 2 years CV: Sinus tachycardia History of pulmonary hypertension? Lactic acidosis Monitor HR and BP keep MAP>65mmHg. Lactic acid 2.3 this morning from 8.3 on arrival. RespENT: Acute respiratory failure secondary to anaphylaxis/stridor ACV ventilation 16/450/5/35 Ventilator bundle Bronchodilator therapy every 6 hours and as needed Solu-Medrol 60mg Q6, Benadryl 25mg Q6, Pepcid 20mg Q12 Start SBT trials as jeremy, check for cuff leak prior to extubation Seen by ENT: No intervention CT neck: There is some fluid/secretions in the upper trachea in the region regional larynx surrounding ETT otherwise unremarkable CT soft tissue neck GI: Chronic abdominal pain NPO start TF today if remains intubated Pepcid twice a day for GI prophylaxis Colace/as needed Senokot for bowel regimen : History of neurogenic bladder Monitor renal function, I/O', electrolytes replacement per protocol. Endo: Hyperglycemia of critical illness Sliding-scale insulin with Accu-Cheks to maintain euglycemia/low regimenevery 6 hours. Heme: Leukocytosis Monitor CBC daily ID: Place on abx ( Aztreonam) Monitor for signs of infection(Fever, WBC) Follow up on BC from 01/06, check sputum cx MSK: History of spinal surgery/neurostimulator since removed Physical therapy evaluate and treat FEN: Access -Right IJ CVL placed 01/05 Prophylaxis - GI - Pepcid - DVT - SCD/heparin subcutaneous Level 3 Franky Gutierrez MD Jan 07, 2017 09:42
[2017-01-07] MEDS: AZTREONAM INJ 1,000 MG in SODIUM CHLORIDE 0.9% INJ 100 ML IV SCH ×2 (11:21→20:14)
[2017-01-07 13:53] LABS: BLOOD GAS BASE EXCESS -1.9 mmol/L (-2-2); BLOOD GAS CARBOXYHEMOGLOBIN 1.2 % (0-4); BLOOD GAS HCO3 22 mmol/L (22-26); BLOOD GAS METHEMOGLOBIN 1.4 % (0-2); BLOOD GAS O2 HGB SATURATION 97 % (90-100); BLOOD GAS OXYGEN CONTENT 13.7 Vol % (12.0-20.0); BLOOD GAS PCO2 36 mmHg (38-42); BLOOD GAS PO2 132 mmHg (61-120); BLOOD GAS TOTAL HGB 9.9 G/DL (12.0-16.0); CRITICAL VALUE NO; FIO2 40 %; OXYGEN DEVICE VENTILATOR; TEMP CORR TO 98.6; VENT SETTINGS EPAP 5 IPAP 10
[2017-01-07 13:54] LABS: DRAW SITE LT RADIAL; NUMBER OF ARTERIAL PUNCTURES 1; STAT YES; ULNAR PULSE Y
== END 2017-01-07 20:40 | disposition left against medical advice (07) | DRG 208 ==
LOC: NEPE 18:16 → NEDA 19:06 → HIMN 21:25
PROVIDERS: ADMIT Internal Medicine Critical Care Medicine; ATTEND Internal Medicine Critical Care Medicine
PROC: 02HV33Z Insertion of Infusion Device into Superior Vena Cava, Percutaneous Approach (ICD-10-PCS; principal; 2017-01-05)
PROC: 5A1945Z Respiratory Ventilation, 24-96 Consecutive Hours (ICD-10-PCS; 2017-01-05)
PROC: 0BH17EZ Insertion of Endotracheal Airway into Trachea, Via Natural or Artificial Opening (ICD-10-PCS; 2017-01-05)
DX: J96.01 Acute respiratory failure with hypoxia (principal); E87.2 Acidosis; I27.2 Other secondary pulmonary hypertension; T88.6XXA Anaphylactic reaction due to adverse effect of correct drug or medicament properly administered, initial encounter; N31.2 Flaccid neuropathic bladder, not elsewhere classified; R07.9 Chest pain, unspecified; G43.909 Migraine, unspecified, not intractable, without status migrainosus; F43.10 Post-traumatic stress disorder, unspecified; G89.29 Other chronic pain; R10.9 Unspecified abdominal pain; R73.9 Hyperglycemia, unspecified; R00.0 Tachycardia, unspecified; E87.6 Hypokalemia; T40.2X5A Adverse effect of other opioids, initial encounter
CPT/HCPCS: 36600; 51702; 70490; 71010; 80048; 80053; 81001; 82140; 82805; 82948; 83605; 83735; 84100; 84702; 85025; 85384; 85610; 85730; 86403; 87040; 87070; 87186; 87205; 87641; 87804; 94002; 94003; 94640; 94664; 96372; 96374; J0131; J0171; J0330; J1200; J1644; J2250; J2370; J2920; J2930; J3010; J3480; J7030; J7050; J7060; J7613